=== PATIENT | male | born 1955 | race Two or more races ===

== ENCOUNTER 2021-09-06 09:45 | Emergency (ER) | payer MEDICARE, OTHER ==
[~2021-09-06] VITALS: Ht 170.2 cm; Wt 63.6 kg
[2021-09-06] MEDS ORDERED: CEPHALEXIN MONOHYDRATE 500 MG CAPSULE PO ONE (11:45)
[2021-09-06] MEDS ORDERED: SULFAMETHOX/TRIMETH DS 800-160 MG/TABLET PO ONE (11:45)
[2021-09-06 12:15] VITALS: BP 135/76
[2021-09-06 12:21] LABS: BASOPHILS % (AUTO) 0.4 % (0.0-2.0); EOSINOPHILS % (AUTO) 0.6 % (1.0-6.0); HEMATOCRIT 45.9 % (41-53); HEMOGLOBIN 15.4 g/dL (13.5-17.5); LYMPHOCYTES % (AUTO) 11.8 % (22.0-44.0); MEAN CORPUSCULAR HEMOGLOBIN 30.4 pg (26.0-34.0); MEAN CORPUSCULAR HGB CONC 33.5 G/dL (31.0-37.0); MEAN CORPUSCULAR VOLUME 91 fL (80-100); MONOCYTES # (AUTO) 0.8 K/uL (0.1-1.0); MONOCYTES % (AUTO) 9.1 % (2.0-9.0); NEUTROPHILS # (AUTO) 6.8 K/uL (1.8-7.7); NEUTROPHILS % (AUTO) 78.1 % (40.0-70.0); RED BLOOD CELL COUNT(AUTO) 5.05 MIL/uL (4.50-5.90); RED CELL DISTRIBUTION WIDTH 14.3 % (11.5-14.5)
[2021-09-06 12:40] LABS: PLATELET COUNT (AUTO) 67 K/uL (150-450)
[2021-09-06 12:43] LABS: ALANINE AMINOTRANSFERASE 23 U/L (12-78); ALBUMIN 4.1 g/dL (3.4-5.0); ALKALINE PHOSPHATASE 96 U/L (46-116); ASPARTATE AMINOTRANSFERASE 25 U/L (15-37); BILIRUBIN,TOTAL 1.9 mg/dL (0.1-1.0); CALCIUM, TOTAL 9.5 mg/dL (8.8-10.5); CARBON DIOXIDE 28 mmol/L (22-29); CREATININE 1.16 mg/dL (0.60-1.30); GLOMERULAR FILTR. RATE CALC > 60 mL/min (>60); GLUCOSE,RANDOM 93 mg/dL (70-110); TOTAL PROTEIN, SERUM 7.8 g/dL (6.4-8.2); UREA NITROGEN, BLOOD 16 mg/dL (7-18); URIC ACID 5.8 mg/dL (2.6-7.2)
[2021-09-06 12:46] LABS: ANION GAP 8 mmol/L (8-16); CHLORIDE 103 mmol/L (98-107); POTASSIUM 4.5 mmol/L (3.5-5.1); SODIUM SERUM 139 mmol/L (136-145)
== END 2021-09-06 13:12 | disposition home or self-care (01) ==
LOC: EMS 09:45
DX: L03.116 Cellulitis of left lower limb (principal)
CPT/HCPCS: 80053; 84550; 85025; 99283